=== PATIENT | male | born 1990 | race Caucasian/White ===

== ENCOUNTER 2017-08-21 15:25 | Emergency (ER) | payer OTHER ==
[~2017-08-21] VITALS: Ht 160 cm; Wt 61.3 kg
[2017-08-21] MEDS ORDERED: NARCAN4 MG NS (16:26)
[2017-08-21 17:39] VITALS: BP 121/68
== END 2017-08-21 17:54 | disposition home or self-care (01) ==
LOC: EME 15:25 → EDSEX 15:25 → EME 17:54
DX: T40.1X1A Poisoning by heroin, accidental (unintentional), initial encounter (principal); F17.200 Nicotine dependence, unspecified, uncomplicated
CPT/HCPCS: 99281; 99284